=== PATIENT | male | born 1955 | race African-American/Black ===

== ENCOUNTER 2020-05-28 09:37 | Outpatient (CLI) | payer OTHER ==
--- NOTE | 2020-05-28 18:43 | XRAY Report ---
PROCEDURE: Hip w/Pelvis 1V RT INDICATIONS: R HIP PX TECHNIQUE: AP pelvis with lateral view(s) of the right hip(s). COMPARISON: None. FINDINGS: Bones: Status post left total hip arthroplasty. No evidence for hardware complication. Mild lower adrianne mbar spondylosis. Moderate degenerative changes of the right hip joint. There is a corticated appeari ng ossification over the inferomedial margin of the right femoral head likely representing a marginal osteophyte. This is not visualized on the lateral view. Otherwise, no acute fractures or dislocation s. Pelvic ring appears intact. No suspicious bony lesions. Soft tissues: The visualized bowel gas pattern is normal. No suspicious soft tissue calcifications. IMPRESSION: 1. Moderate degenerative changes of the right hip joint. 2. Corticated ossification overlying the inferomedial margin of the right femoral head suspected to r epresent a marginal osteophyte. It appears chronic. 3. Status post left total hip arthroplasty. No evidence for hardware complication. 4. Mild lower lumbar spondylosis. Reviewed by: Salazar Brown MD on 05/28/2020 5:41 PM [facility] Approved by: Salazar Brown MD on 05/28/2020 5:41 PM [facility] Station ID: [id number]
== END 2020-05-28 23:59 | disposition home or self-care (01) ==
LOC: DI.N 09:37
PROVIDERS: ATTEND Orthopaedic Surgery
DX: M16.11 Unilateral primary osteoarthritis, right hip (principal); M47.816 Spondylosis without myelopathy or radiculopathy, lumbar region; R93.6 Abnormal findings on diagnostic imaging of limbs; Z96.642 Presence of left artificial hip joint

== ENCOUNTER 2023-08-24 18:52 | Outpatient (CLI) | payer OTHER ==
--- NOTE | 2023-08-25 12:58 | Ultrasound Report ---
PROCEDURE: Pelvic Limited INDICATIONS: POSITIVE TEST TECHNIQUE: Real-time transabdominal scanning was performed of the left inguinal region, with image documentation . COMPARISON: None. FINDINGS: Partially reducible fat-containing left inguinal hernia. Neck measures between 2.2 and 3.5 cm. The he rniated portion measures 5.1 x 1.8 cm. IMPRESSION: Partially reducible left inguinal hernia containing fat. Reviewed by: Jose Pederson MD on 08/25/2023 12:57 PM PDT Approved by: Jose Pederson MD on 08/25/2023 12:57 PM PDT Station ID: [id number]
== END 2023-08-24 18:53 | disposition home or self-care (01) ==
LOC: DI 18:52
PROVIDERS: ATTEND Registered Nurse
DX: K40.90 Unilateral inguinal hernia, without obstruction or gangrene, not specified as recurrent (principal)